=== PATIENT | female | born 1995 | race Caucasian/White ===

== ENCOUNTER → 2016-09-25 | Outpatient (CLI) | payer BC ==
--- NOTE | 2016-09-25 11:20 | KCIC ---
PROCEDURE Pelvic ultrasound. HISTORY Left lower quadrant abdominal pain. TECHNIQUE Real-time ultrasound imaging of the pelvis using transabdominal window is performed. Patient declined transvaginal imaging. COMPARISON None. FINDINGS Uterus measures 7.1 x 4.7 x 3.7 cm. No focal abnormality. The endometrial stripe is normal measuring 3 millimeters. The right ovary measures 2.9 x 2.5 x 1.8 cm. The left ovary measures 2.1 x 2.2 x 1.8 cm. Color Doppler demonstrates internal blood flow. No pelvic free fluid. No evidence of adnexal mass. IMPRESSION Normal transabdominal pelvic ultrasound. Electronically signed by: Greg Lowery MD (September 25, 2016 11:19:09)
--- NOTE | 2016-09-25 11:27 | KCIC ---
PROCEDURE Complete abdominal ultrasound. HISTORY Left upper quadrant abdominal pain. TECHNIQUE Real-time ultrasound imaging of the abdomen is performed. COMPARISON None. FINDINGS The liver measures 14 cm in length and is homogeneous in appearance. The pancreas is incompletely seen. Portion seen is homogeneous. Gallbladder is contracted, limiting evaluation. The gallbladder appears normal and no gallstones or gallbladder wall thickening is seen. No pericholecystic fluid is seen. No positive Concepcion's sign was elicited during transducer examination of the gallbladder. The right kidney measures 10.3 cm in length and no hydronephrosis or renal mass or perinephric fluid collection is seen. The left kidney measures 11.1 cm in length and no hydronephrosis or renal mass or perinephric fluid collection is seen. The spleen measures 8.6 cm in length and is homogeneous in appearance. IVC, common bile duct, and abdominal aorta are obscured due to overlying bowel gas. No ascites is seen. IMPRESSION No significant sonographic abnormality of the abdomen is seen. Some structures are obscured due to overlying bowel gas. Electronically signed by: Greg Lowery MD (September 25, 2016 11:25:17)
== END | disposition home or self-care (01) ==
LOC: KCIC US 08:48
PROVIDERS: ATTEND Nurse Practitioner
DX: R10.32 Left lower quadrant pain (principal)
CPT/HCPCS: 76700; 76856

== ENCOUNTER → 2017-09-13 | Outpatient (CLI) | payer BC | END | disposition home or self-care (01) | LOC: KCIC US 08:17 | DX: R10.11 Right upper quadrant pain (principal) | CPT/HCPCS: 76705 ==